=== PATIENT | male | born 1960 | race Caucasian/White ===

== ENCOUNTER 2016-09-05 16:38 | Emergency (ER) | payer OTHER, BC ==
[~2016-09-05] VITALS: Ht 182.9 cm; Wt 95.5 kg
[~2016-09-05 16:38] MED LIST: ACIDOPHILUS LA1 EAC1 PO; ADVAIR 500-501 EACH IH; ADVAIR 500/501 DISK IH; ALLOPURINOL300 MG PO; AMBIEN CR12.5 MG PO; AMBIEN10 MG PO; AQUASOL E; ASACOL400 MG PO; ASPIR 8181 MG PO; ASPIR-TRIN325 M1 PO; ASPIRIN81 M1 PO; ASPIRIN81 M2 PO; ATIVAN2 MG PO; AVENTYL,PAMELOR25 MG PO; Advair HFA 230/21 IH; Aspirin E.C. PO; Atarax,Vistaril PO; Ativan PO; BEROCCA PLUS1 TABLET PO; CALAN SR,COVER240 MG PO; CALAN SR240 MG PO; CARAFATE1 GM PO; CIALIS5 MG PO; CLONAZEPAM0.5 MG PO; COBAL-10001000 MCG/2 IM; CYANOCOBAL1000 MCG/2 IM; DELTASONE10 MG PO; DICLOFENAC SODI75 MG PO; DILAUDID2 MG PO; DONNATAL1 TABLET PO; DUONEB3 ML IH; Dilaudid PO; EFFEXOR XR150 MG PO; EFFEXOR75 MG PO; Ecotrin PO; Effexor PO; Effexor XR PO; FLEXERIL10 MG PO; FLEXERIL5 MG PO; FLOMAX0.4 M1 PO; FLOMAX0.4 MG PO; FLORASTOR250 MG PO; Flagyl PO; Flexeril PO; Flomax PO; GENACOTE325 MG PO; GLUCOPHAGE1000 MG PO; HYDROXYZINE HCL25 MG PO; IRON18 MG PO; IRON55 MG PO; K-DUR10 ME2 PO; K-DUR20 MEQ PO; K-TAB10 MEQ PO; KEPPRA1000 MG PO; KEPPRA500 MG PO; KEPPRA750 MG PO; KLONOPIN0.5 M1 PO; KLOR-CON M1010 MEQ PO; Keflex PO; Keppra PO; KlonoPIN PO; LACTINEX CHEWA1 EACH PO; LAMICTAL150 MG PO; LAMOTRIGINE200 MG PO; LASIX20 MG PO; LASIX40 MG PO; LIALDA1.2 GM PO; LOMOTIL TABLET1 EACH PO; LOPRESSOR25 MG PO; LUNESTA3 MG PO; LaMICtal PO; Lasix PO; Lopressor PO; METFORMIN HCL500 MG PO; MEVACOR40 MG PO; MICRO-K,K-DUR,10 ME1 PO; MORPHINE SULFAT30 M2 PO; MS Contin,Oramorph S PO; MULTIVITAMIN1 EAC2 PO; Micro-K,K-Tab,K-Dur, PO; NEURONTIN100 MG PO; NEURONTIN600 M1 PO; NEURONTIN600 MG PO; NEXIUM40 MG PO; NORTRIPTYLINE H25 MG PO; ONDANSETRON ODT4 MG PO; OPIUM PO; OPIUM TINCTURE 10 MG/ML PO; OXYCODONE10 MG PO; POTASSIUM CHLO10 MEQ PO; PRAVACHOL40 MG PO; PRAVASTATIN SOD80 MG PO; PRINIVIL10 MG PO; PROTONIX40 MG PO; QUESTRAN4 GM/PACKE PO; REGLAN5 MG PO; REQUIP1 MG PO; RESTORIL30 MG PO; RISPERDAL3 MG PO; ROBAXIN500 MG PO; Requip PO; SEROPHENE50 MG PO; SEROQUEL200 MG PO; SEROquel PO; SINGULAIR10 MG PO; Singulair PO; THEO-DUR,THEOC300 MG PO; THERAGRAN1 TABLET PO; TOPAMAX100 MG PO; TOPAMAX25 MG PO; TOPAMAX50 MG PO; TRAZODONE HCL50 MG PO; Topamax PO; Toprol XL PO; Tylenol Regular Stre PO; VENLAFAXINE H37.5 M3 PO; VENTOLIN17 GM IH; VERAPAMIL ER240 MG PO; VISTARIL25 MG PO; VITAMIN D-32000 UNI1 PO; VITAMIN D-32000 UNIT PO; VITAMIN D2000 UNIT PO; VITAMIN D22000 UNIT PO; VITAMIN D250000 UNIT PO; VITAMIN D400 UNI2 PO; VITAMIN D5000 INTUN PO; VITAMIN D50000 UNI1 PO; VITAMIN E400 UNI6 PO; VOLTAREN75 MG PO; Vancocin Oral Soluti PO; Vitamin D, Drisdol PO; Voltaren PO; ZANTAC300 MG PO; ZESTRIL,PRINIVIL5 MG PO; ZOFRAN ODT4 MG PO; ZOFRAN4 MG PO; ZOFRAN8 MG PO; ZYLOPRIM100 MG PO; ZYLOPRIM150 MG PO; ZYPREXA2.5 MG PO; ZYPREXA5 MG PO; Zestril,Prinivil PO; Zyloprim PO; [UNRECOGNIZED DRUG - OTHER] PO; [UNRECOGNIZED DRUG - OTHER] PO
[2016-09-05 17:50] LABS: HEMATOCRIT 35.9 % (38.0-50.0); MCH 28.4 PG (29.0-34.0); MCHC 31.2 G/DL (30.0-36.0); MCV 91.1 FL (86-99); PLATELET COUNT 263 K/uL (156-360); RBC DIS.WIDTH-CV 16.3 % (11.8-14.6); RBC DIS.WIDTH-SD 52.9 % (39-53); RED BLOOD COUNT 3.94 M/uL (4.00-5.50); WHITE BLOOD COUNT 7.2 K/uL (4.1-10.2)
[2016-09-05 17:53] LABS: EOSINOPHIL (%) 0 % (0-5); IMMATURE GRANULOCYTE (%) 0.1 % (0.0-0.7); IMMATURE GRANULOCYTE COUNT 0.1 K/uL; MONOCYTE (%) 6.6 % (3-12); MONOCYTE COUNT 0.5 K/uL (0-0.8); NEUTROPHIL (%) 79.5 % (45-76); NEUTROPHIL COUNT 5.7 K/uL (1.8-6.4)
[2016-09-05 18:00] LABS: CHLORIDE 109 mEq/L (99-109); POTASSIUM 3.8 mEq/L (3.7-5.4); SODIUM 143 mEq/L (136-147)
[2016-09-05 18:02] LABS: GLUCOSE 102 mg/dL (70-99)
[2016-09-05 18:04] LABS: ANION GAP 11 MEQ/L (2-14); TOTAL BILIRUBIN 0.2 mg/dL (0.0-1.0)
[2016-09-05 18:06] LABS: ALKALINE PHOSPHATASE 128 IU/L (3-129); GFR ESTIMATE (CALCULATED) > 59 mL/min/
[2016-09-05 18:07] LABS: UREA NITROGEN (BUN) 24 mg/dL (9-23)
[2016-09-05 18:10] LABS: TROP-I INTERPRETATION NEGATIVE; TROPONIN-I < 0.01 ng/mL (0.0-0.30)
[2016-09-05 19:11] LABS: ADD MIUA? NO; BILIRUBIN NEGATIVE; BLOOD NEGATIVE; COLOR YELLOW ((YELLOW)); GLUCOSE (STRIP) NEGATIVE; KETONES NEGATIVE; LEUKOCYTES NEGATIVE; NITRITE NEGATIVE; PROTEIN (STRIP) NEGATIVE; SPECIFIC GRAVITY 1.021 (1.000-1.030); UCUL ADDED? NO; UROBILINOGEN 0.2 MG/DL (0.2-1.0)
[2016-09-05 20:09] LABS: SAMPLE HEMOLYSIS CHECK 0; SAMPLE ICTERIC CHECK 0; SAMPLE LIPEMIA CHECK 0
[2016-09-05 20:55] VITALS: BP 124/82
== END 2016-09-05 20:56 | disposition home or self-care (01) ==
LOC: EME 16:38
PROVIDERS: Emergency Medicine
DX: R53.1 Weakness (principal); T42.6X5A Adverse effect of other antiepileptic and sedative-hypnotic drugs, initial encounter; I25.2 Old myocardial infarction; Z87.442 Personal history of urinary calculi; Z88.1 Allergy status to other antibiotic agents; Z91.041 Radiographic dye allergy status
CPT/HCPCS: 71020; 80053; 80164; 81003; 84484; 85025; 93005; 99281; 99284; J7030

== ENCOUNTER 2016-12-31 14:02 | Emergency (ER) | payer OTHER, BC ==
[~2016-12-31] VITALS: Ht 182.9 cm; Wt 96.3 kg
[2016-12-31 15:44] LABS: MCH 27.5 PG (29.0-34.0); MCHC 30.6 G/DL (30.0-36.0); MEAN PLAT.VOLUME 9.1 uM^3 (9.0-12.4); PLATELET COUNT 242 K/uL (156-360); RBC DIS.WIDTH-CV 16.3 % (11.8-14.6); RBC DIS.WIDTH-SD 53.5 % (39-53); RED BLOOD COUNT 3.89 M/uL (4.00-5.50); WHITE BLOOD COUNT 6.7 K/uL (4.1-10.2)
[2016-12-31 16:01] LABS: CHLORIDE 104 mEq/L (99-109); POTASSIUM 3.6 mEq/L (3.7-5.4); SODIUM 142 mEq/L (136-147)
[2016-12-31 16:03] LABS: GLUCOSE 133 mg/dL (70-99)
[2016-12-31 16:04] LABS: ANION GAP 10 MEQ/L (2-14)
[2016-12-31 16:07] LABS: GFR ESTIMATE (CALCULATED) > 59 mL/min/
[2016-12-31 16:08] LABS: UREA NITROGEN (BUN) 23 mg/dL (9-23)
[2016-12-31 16:11] LABS: TROP-I INTERPRETATION NEGATIVE; TROPONIN-I < 0.01 ng/mL (0.0-0.30)
[2016-12-31 17:17] VITALS: BP 113/81
== END 2016-12-31 17:17 | disposition home or self-care (01) ==
LOC: EME 14:02
DX: S43.102A Unspecified dislocation of left acromioclavicular joint, initial encounter (principal)
CPT/HCPCS: 71020; 80048; 84484; 85027; 93005; 99281; 99285